=== PATIENT | female | born 1950 | race Caucasian/White ===

== ENCOUNTER 2016-05-16 15:39 | Inpatient (IN) | payer MEDICARE, OTHER ==
[2016-05-16 18:41] LABS: BASOPHIL 0.5 % (0-2); EOSINOPHIL 2.2 % (0-7); HCT 41.6 % (37.0-47.0); HGB 13.6 g/dl (12.5-16.0); LYMPHOCYTE 16.5 % (15-48); MCHC 32.7 g/dL (32.0-36.0); MCV 82.7 fL (78.0-100.0); MONOCYTE 6.3 % (0-12); MPV 9.9 fL (6.0-9.5); NEUTROPHIL 74.5 % (41-80); PLT 215 K/uL (150-400); RBC 5.03 M/uL (4.20-5.40); RDW 14.8 % (11.5-14.0); WBC 7.9 K/uL (4.0-10.5)
[2016-05-16 18:57] LABS: CREATININE 0.9 mg/dL (0.5-1.0); POTASSIUM 3.5 mmol/L (3.5-5.1)
[2016-05-17 01:23] LABS: TROPONIN T < 0.010 ng/mL
[2016-05-17 01:24] LABS: MAGNESIUM 1.78 mg/dL (1.40-2.10)
[2016-05-17 01:25] LABS: CKMB < 1.00 ng/mL (0.97-4.94)
[2016-05-17 05:40] LABS: HCT 37.4 % (37.0-47.0); HGB 12.1 g/dl (12.5-16.0); MCH 26.7 pg (25.0-31.0); MCHC 32.4 g/dL (32.0-36.0); MCV 82.4 fL (78.0-100.0); MPV 10.1 fL (6.0-9.5); RBC 4.54 M/uL (4.20-5.40); RDW 14.8 % (11.5-14.0); WBC 7.6 K/uL (4.0-10.5)
[2016-05-17 05:56] LABS: ALBUMIN 3.7 g/dL (3.4-4.8); BILIRUBIN - TOTAL 0.5 mg/dL (0.1-1.0); CREATININE 0.8 mg/dL (0.5-1.0); GLOBULIN (CALCULATION) 2.6 g/dL (2.2-4.2); MAGNESIUM 2.83 mg/dL (1.40-2.10); POTASSIUM 3.4 mmol/L (3.5-5.1); TOTAL PROTEIN 6.3 g/dL (6.4-8.3)
--- NOTE | 2016-05-17 09:26 | NUR ---
PT LEFT AND RETURNED TO FLOOR FROM RADIOLOGY. PT TOLERATED TRANSITION WELL. O2 AT 93% ON 2L
[2016-05-18 06:09] LABS: BASOPHIL 0 % (0-2); EOSINOPHIL 0 % (0-7); HCT 36.7 % (37.0-47.0); LYMPHOCYTE 4.3 % (15-48); MCHC 32.7 g/dL (32.0-36.0); MCV 82.5 fL (78.0-100.0); MONOCYTE 3.8 % (0-12); MPV 10.4 fL (6.0-9.5); NEUTROPHIL 91.9 % (41-80); PLT 259 K/uL (150-400); RBC 4.45 M/uL (4.20-5.40); RDW 14.9 % (11.5-14.0)
[2016-05-18 06:11] LABS: WBC 16.5 K/uL (4.0-10.5)
[2016-05-18 06:28] LABS: CREATININE 0.9 mg/dL (0.5-1.0); MAGNESIUM 2.12 mg/dL (1.40-2.10)
[2016-05-19 06:39] LABS: BASOPHIL 0.1 % (0-2); EOSINOPHIL 0 % (0-7); HCT 37.3 % (37.0-47.0); HGB 12.4 g/dl (12.5-16.0); LYMPHOCYTE 4.6 % (15-48); MCH 27.4 pg (25.0-31.0); MCHC 33.2 g/dL (32.0-36.0); MCV 82.5 fL (78.0-100.0); MONOCYTE 2.6 % (0-12); MPV 9.9 fL (6.0-9.5); PLT 275 K/uL (150-400); RBC 4.52 M/uL (4.20-5.40); WBC 13.6 K/uL (4.0-10.5)
[2016-05-19 06:51] LABS: NEUTROPHIL 92.7 % (41-80)
[2016-05-19 07:03] LABS: CREATININE 0.8 mg/dL (0.5-1.0); POTASSIUM 4.3 mmol/L (3.5-5.1)
--- NOTE | 2016-05-20 11:38 | NUR ---
REVIEWED DISCHARGE INSTRUCTIONS, MEDICATIOS AND NEB TX WITH [facility] VERBALIZED UNDERSTANDSING
== END 2016-05-20 11:42 | disposition home or self-care (01) | DRG 189 ==
LOC: FER 15:39 → FTCU 23:20 → FMS 05-17 18:02
PROVIDERS: Allergy & Immunology; Emergency Medicine; Internal Medicine; ADMIT Internal Medicine
DX: J96.01 Acute respiratory failure with hypoxia (principal); J18.9 Pneumonia, unspecified organism; I69.354 Hemiplegia and hemiparesis following cerebral infarction affecting left non-dominant side; J44.0 Chronic obstructive pulmonary disease with (acute) lower respiratory infection; J44.1 Chronic obstructive pulmonary disease with (acute) exacerbation; J45.909 Unspecified asthma, uncomplicated; K21.9 Gastro-esophageal reflux disease without esophagitis; I10 Essential (primary) hypertension; M19.90 Unspecified osteoarthritis, unspecified site; Z90.49 Acquired absence of other specified parts of digestive tract; E78.5 Hyperlipidemia, unspecified; Z87.891 Personal history of nicotine dependence; Z83.3 Family history of diabetes mellitus
CPT/HCPCS: 36415; 36600; 71020; 71275; 78579; 78580; 80048; 80053; 82550; 82553; 82803; 82962; 83036; 83735; 84484; 85025; 85379; 87804; 87899; 93005; 94010; 94640; 94667; 94668; 94760; 94762; 96372; A9539; A9540; J0456; J1956; J2930; J3475; Q9967

== ENCOUNTER 2016-07-30 09:06 | Emergency (ER) | payer MEDICARE, OTHER ==
[2016-07-30 10:40] LABS: BASOPHIL 0.2 % (0-2); EOSINOPHIL 2.4 % (0-7); HCT 35.3 % (37.0-47.0); HGB 11.9 g/dl (12.5-16.0); LYMPHOCYTE 8.8 % (15-48); MCHC 33.7 g/dL (32.0-36.0); MCV 83.1 fL (78.0-100.0); MONOCYTE 5.5 % (0-12); MPV 10.3 fL (6.0-9.5); NEUTROPHIL 83.1 % (41-80); PLT 231 K/uL (150-400); RBC 4.25 M/uL (4.20-5.40); RDW 15.3 % (11.5-14.0); WBC 10.9 K/uL (4.0-10.5)
[2016-07-30 10:57] LABS: ALBUMIN 3.8 g/dL (3.4-4.8); BILIRUBIN - TOTAL 0.5 mg/dL (0.1-1.0); CREATININE 0.9 mg/dL (0.5-1.0); POTASSIUM 3.6 mmol/L (3.5-5.1); TOTAL PROTEIN 5.8 g/dL (6.4-8.3)
== END 2016-07-30 12:40 | disposition home or self-care (01) ==
LOC: FER 09:06
PROVIDERS: Internal Medicine
DX: K29.70 Gastritis, unspecified, without bleeding (principal); K31.89 Other diseases of stomach and duodenum; J44.9 Chronic obstructive pulmonary disease, unspecified; Z87.442 Personal history of urinary calculi; Z90.49 Acquired absence of other specified parts of digestive tract; Z90.710 Acquired absence of both cervix and uterus; Z87.891 Personal history of nicotine dependence; Z79.899 Other long term (current) drug therapy
CPT/HCPCS: 36415; 74022; 80053; 84484; 85025; 85379; 93005

== ENCOUNTER 2020-06-30 13:01 | Emergency (ER) | payer MEDICARE, OTHER ==
[~2020-06-30 13:01] MED LIST: ASPIRIN CHEWABL81 MG PO; AZITHROMYCIN250 MG PO; BENZONATATE100 MG PO; CARAFATE1 GM PO; CEFDINIR300 MG PO; DOXYCYCLINE MO100 MG PO; DUONEB 2.5-0.5M1 AMP NEB; HCTZ25 MG PO; KLOR-CON M 1010 MEQ PO; LEVAQUIN750 MG PO; LIPITOR20 MG PO; LOPERAMIDE2 MG PO; MUCINEX OTC; NABUMETONE750 MG PO; NEURONTIN300 MG PO; NORCO 5-325 TA1 EAC1 PO; POTASSIUM CHLO10 ME1 PO; PREDNISONE 20MG20 MG PO; PRILOSEC20 MG PO; PROTONIX 40MG T40 MG PO; SINGULAIR10 MG PO; TENORMIN50 MG PO; VENTOLIN HFA IN18 GM INH; ZANTAC150 MG PO; ZESTRIL40 MG PO; ZOLOFT50 MG PO
[2020-06-30 13:51] LABS: BASOPHIL 0.6 % (0-2); EOSINOPHIL 3.9 % (0-7); HCT 39.7 % (37.0-47.0); HGB 12.9 g/dl (12.5-16.0); LYMPHOCYTE 24.8 % (15-48); MCH 28.7 pg (25.0-31.0); MCHC 32.5 g/dL (32.0-36.0); MCV 88.4 fL (78.0-100.0); MONOCYTE 6.4 % (0-12); MPV 10.3 fL (6.0-9.5); NEUTROPHIL 63.9 % (41-80); NRBC 0; PLT 223 K/uL (150-400); RBC 4.49 M/uL (4.20-5.40); RDW 13.7 % (11.5-14.0); WBC 8.1 K/uL (4.0-10.5)
[2020-06-30 14:04] LABS: ALBUMIN 3.5 g/dL (3.4-5.0); BILIRUBIN - TOTAL 0.5 mg/dL (0.2-1.0); BUN/CREAT RATIO (CALC) 23.1 RATIO; CREATININE 0.91 mg/dL (0.51-0.95); GLOBULIN (CALCULATION) 2.9 g/dL; POTASSIUM 4.4 mmol/L (3.5-5.1); TOTAL PROTEIN 6.4 g/dL (6.4-8.2)
[2020-06-30 14:10] LABS: PRO-BNP 499 pg/mL (<125)
[2020-06-30] MEDS ORDERED: PREDNISONE 20MG20 MG PO (14:48)
== END 2020-06-30 15:10 | disposition home or self-care (01) ==
LOC: FER 13:01
PROVIDERS: Emergency Medicine
DX: J45.909 Unspecified asthma, uncomplicated (principal)
CPT/HCPCS: 36415; 71045; 80053; 83880; 84484; 85025; 93005

== ENCOUNTER 2021-06-28 10:50 | Inpatient (IN) | payer MEDICARE, OTHER ==
[~2021-06-28] VITALS: Ht 160 cm; Wt 107.2 kg
[2021-06-28 12:10] LABS: CORONAVIRUS 2019 SARS-COV-2 NEGATIVE (NEGATIVE); INFLUENZA A NAA NEGATIVE (NEGATIVE)
[2021-06-28 14:56] LABS: BILIRUBIN 1+ mg/dL (NEGATIVE); BLOOD 2+ Ery/uL (NEGATIVE); CLARITY CLEAR (CLEAR); COLOR YELLOW (YELLOW); GLUCOSE (U) NORMAL (NORMAL); LEUKOCYTES NEGATIVE Leu/uL (NEGATIVE); NITRITE NEGATIVE (NEGATIVE); PROTEIN 2+ mg/dL (NEGATIVE); SPECIFIC GRAVITY >=1.030 (1.001-1.030); UROBILINOGEN >=8.0 mg/dL (0.2-1.0)
[2021-06-28 15:11] LABS: URINARY WBC RARE
[2021-06-28 15:11] LABS: BASOPHIL 0.3 % (0-2); EOSINOPHIL 0.2 % (0-7); HCT 42.8 % (37.0-47.0); LYMPHOCYTE 7.5 % (15-48); MCH 28.5 pg (25.0-31.0); MCHC 32.7 g/dL (32.0-36.0); MONOCYTE 6.2 % (0-12); MPV 10.7 fL (6.0-9.5); NEUTROPHIL 85.5 % (41-80); NRBC 0; PLT 189 K/uL (150-400); RBC 4.92 M/uL (4.20-5.40); RDW 13.7 % (11.5-14.0); WBC 13.1 K/uL (4.0-10.5)
[2021-06-28 15:12] LABS: BACTERIA TRACE; MUCOUS TRACE; TRANSITIONAL EPITHELIAL CELLS RARE
[2021-06-28 15:32] LABS: ALBUMIN 3.1 g/dL (3.4-5.0); BILIRUBIN - TOTAL 1.1 mg/dL (0.2-1.0); BUN/CREAT RATIO (CALC) 19.2 RATIO; CREATININE 0.78 mg/dL (0.51-0.95); GLOBULIN (CALCULATION) 4.8 g/dL; POTASSIUM 2.8 mmol/L (3.5-5.1); TOTAL PROTEIN 7.9 g/dL (6.4-8.2)
[2021-06-29 06:24] LABS: BASOPHIL 0.3 % (0-2); EOSINOPHIL 1.7 % (0-7); HCT 35.5 % (37.0-47.0); HGB 11.5 g/dl (12.5-16.0); MCH 28.4 pg (25.0-31.0); MCHC 32.4 g/dL (32.0-36.0); MCV 87.7 fL (78.0-100.0); MONOCYTE 7.4 % (0-12); MPV 10.7 fL (6.0-9.5); NEUTROPHIL 82.2 % (41-80); NRBC 0; PLT 169 K/uL (150-400); RBC 4.05 M/uL (4.20-5.40); RDW 13.8 % (11.5-14.0); WBC 11.1 K/uL (4.0-10.5)
[2021-06-29 06:42] LABS: BUN/CREAT RATIO (CALC) 23.4 RATIO; CREATININE 0.77 mg/dL (0.51-0.95); MAGNESIUM 1.7 mg/dL (1.8-2.4); POTASSIUM 2.8 mmol/L (3.5-5.1)
[2021-06-29] MEDS ORDERED: NEURONTIN300 MG PO (13:03)
[2021-06-29] MEDS ORDERED: NABUMETONE750 MG PO (13:04)
[2021-06-30 06:00] LABS: BASOPHIL 0.1 % (0-2); EOSINOPHIL 0.1 % (0-7); HCT 36.3 % (37.0-47.0); HGB 11.8 g/dl (12.5-16.0); LYMPHOCYTE 9.2 % (15-48); MCH 28.6 pg (25.0-31.0); MCHC 32.5 g/dL (32.0-36.0); MCV 88.1 fL (78.0-100.0); MONOCYTE 6.8 % (0-12); MPV 10.4 fL (6.0-9.5); NEUTROPHIL 82.7 % (41-80); NRBC 0; PLT 226 K/uL (150-400); RBC 4.12 M/uL (4.20-5.40); RDW 13.8 % (11.5-14.0); WBC 14.1 K/uL (4.0-10.5)
[2021-06-30 06:46] LABS: BUN/CREAT RATIO (CALC) 36.5 RATIO; CREATININE 0.96 mg/dL (0.51-0.95)
[2021-06-30 06:50] LABS: POTASSIUM 4.4 mmol/L (3.5-5.1)
[2021-06-30 08:14] LABS: BILIRUBIN NEGATIVE (NEGATIVE); BLOOD NEGATIVE Ery/uL (NEGATIVE); CLARITY CLEAR (CLEAR); COLOR YELLOW (YELLOW); GLUCOSE (U) NORMAL (NORMAL); LEUKOCYTES NEGATIVE Leu/uL (NEGATIVE); NITRITE NEGATIVE (NEGATIVE); PROTEIN TRACE (LOW) mg/dL (NEGATIVE); SPECIFIC GRAVITY 1.025 (1.001-1.030)
[2021-06-30 08:49] LABS: SQUAMOUS EPITHELIAL CELLS RARE
[2021-06-30] MEDS ORDERED: DUONEB 2.5-0.5M1 AMP NEB (09:53)
[2021-06-30] MEDS ORDERED: VIBRAMYCIN100 MG PO (09:53)
[2021-06-30] MEDS ORDERED: NABUMETONE750 MG PO (09:53)
[2021-06-30] MEDS ORDERED: FOLIC ACID1 MG PO (09:53)
[2021-06-30] MEDS ORDERED: FLORANEX TABLE1 EACH PO (09:53)
[2021-06-30] MEDS ORDERED: PREDNISONE 20MG20 MG PO (09:53)
--- NOTE | 2021-06-30 10:32 | NUR ---
PT WILL D/C HOME WITH SPOUSE THIS DATE. SHE IS INDEPENDENT AT HOME. SHE REQUESTED THAT HER HOME O2 COME FROM [facility] FOR NURSING AND PT/OT [facility].
== END 2021-06-30 14:08 | disposition home or self-care (01) | DRG 871 ==
LOC: FER 10:50 → FTCU 18:41
PROVIDERS: Emergency Medicine; Nurse Practitioner; ADMIT Family Medicine
DX: A41.9 Sepsis, unspecified organism (principal); J18.9 Pneumonia, unspecified organism; J96.21 Acute and chronic respiratory failure with hypoxia; J44.0 Chronic obstructive pulmonary disease with (acute) lower respiratory infection; J44.1 Chronic obstructive pulmonary disease with (acute) exacerbation; Z20.822 Contact with and (suspected) exposure to COVID-19; R65.20 Severe sepsis without septic shock; E87.6 Hypokalemia; R73.9 Hyperglycemia, unspecified; D64.9 Anemia, unspecified; R31.9 Hematuria, unspecified; T38.0X5A Adverse effect of glucocorticoids and synthetic analogues, initial encounter; K21.9 Gastro-esophageal reflux disease without esophagitis; E78.5 Hyperlipidemia, unspecified; M19.90 Unspecified osteoarthritis, unspecified site; Z96.653 Presence of artificial knee joint, bilateral; Z99.81 Dependence on supplemental oxygen; Z90.49 Acquired absence of other specified parts of digestive tract; Z98.890 Other specified postprocedural states; Z98.84 Bariatric surgery status; Z87.891 Personal history of nicotine dependence; Z90.710 Acquired absence of both cervix and uterus; Z86.73 Personal history of transient ischemic attack (TIA), and cerebral infarction without residual deficits
CPT/HCPCS: 36415; 71046; 71250; 80048; 80053; 81001; 82607; 83036; 83540; 83550; 83605; 83735; 84145; 85025; 87040; 94010; 94640; 97161; 97530-GP; J0696; J1170; J2405; J2930; J7030; J7050; J7512; U0002